=== PATIENT | female | born 1975 | race Caucasian/White ===

== ENCOUNTER 2023-03-09 15:55 | Emergency (ER) | payer OTHER, SELFPAY ==
--- NOTE | ~2023-03-09 | CT_ITS ---
EXAMINATION: CT abdomen pelvis wo con DATE: 03/09/2023 19:05 INDICATION: LUQ/L flank pain TECHNIQUE: Computed tomography (CT) of the abdomen and pelvis was performed without intravenous contr ast. Automated exposure control and iterative reconstruction technique were employed. The dose-length product was 710.48 mGy-cm. COMPARISON: None. FINDINGS: Lower thorax: Unremarkable Liver: Normal. Biliary/Gallbladder: Gallbladder is normal. No bile duct dilation. Pancreas: No mass or duct dilation. Spleen: Normal. Adrenals:No mass. Kidneys: No mass, stone, or hydronephrosis. GI tract: No small or large bowel dilation. Normal appendix. Mesentery/Peritoneum: No ascites, mass, or free air. Retroperitoneum: No mass. Pelvis: Pelvic organs are within normal limits. Soft Tissues: Soft tissues and body wall unremarkable. Bones: No acute osseous finding. IMPRESSION: No acute abdominopelvic process detected Reviewed, dictated and finalized at location K.
[2023-03-09 15:57] VITALS: BP 136/97; PULSE 79; RESP 22; TEMP 36.6; O2SAT 99
[2023-03-09] MEDS: hydrOXYzine HCL 25 MG TABLET 50 MG PO (17:42)
[2023-03-09 17:47] LABS: Basophils Absolute Auto 0.1 K/mm3 (0.0-0.1); Basophils Percent Auto 0.7 % (0.2-1.2); Eosinophils Absolute Auto 0.2 K/mm3 (0-0.3); Eosinophils Percent Auto 1.7 % (0-4.4); Hemoglobin 13.7 g/dL (12.0-15.0); Immature Granulocyte Absolute 0.04 K/mm3 (0.00-0.031); Immature Granulocyte Percent A 0.3 % (0-0.5); Lymphocytes Absolute Auto 2.63 K/mm3 (0.9-3.2); Lymphocytes Percent Auto 22.8 % (18.3-44.2); Mean Corpuscular HGB Conc 33.4 g/dl (32-36); Mean Corpuscular Hemoglobin 28.8 pg (26-34); Mean Corpuscular Volume 86.3 fl (80-100); Mean Platelet Volume 12.6 fl (7.4-10.4); Monocytes Absolute Auto 0.7 K/mm3 (0.1-0.6); Monocytes Percent Auto 5.7 % (2.6-8.5); Neutrophils Absolute Auto 7.9 K/mm3 (1.3-6.7); Neutrophils Percent Auto 68.8 % (45.5-73.1); Platelet Count Result 202 k/mm3 (150-375); Red Blood Count 4.75 M/mm3 (4.2-5.4); Red Cell Distribution Width 13.7 % (11.5-14.5); White Blood Count 11.5 K/mm3 (4.5-10.0)
--- NOTE | 2023-03-09 18:18 | ED.ANXIETY ---
HPI - Anxiety General Chief Complaint: Anxiety Stated Complaint: anxiety Time Seen by Provider: 03/09/23 16:29 Source: patient Mode of arrival: EMS Limitations: no limitations History of Present Illness HPI narrative: Patient is a 47-year-old female who presents to ED via EMS with report of left side pain and anxiety. Patient reports she was walking earlier this afternoon when she suddenly developed pain in her left upper abdomen. She states pain was sharp and sudden and lasted approximately 5 minutes before resolving. Pain was worse with movement, she was unable to find a comfortable position. She did not try anything for the pain. She began feeling very anxious about the pain. EMS was then called. Patient became even more anxious about coming to the hospital and having to focus on her, that she developed a panic attack. Patient does have long history of anxiety and takes Atarax 4 times a day. She did not take her first 2 doses this morning. Patient still feels anxious currently, but denies any further abdominal pain. Denies any chest pain, difficulty breathing, nausea, vomiting, diarrhea, constipation, urinary sx's. Related Data Home Medications Medication Instructions Recorded Confirmed famotidine 20 mg tablet (Pepcid) 20 mg PO DAILY 06/09/21 08/21/22 Allergies Allergy/AdvReac Type Severity Reaction Status Date / Time bupropion [From Wellbutrin] Allergy Mild Itching Verified 09/06/22 13:57 Review of Systems Review of Systems: CONSTITUTIONAL: Denies fever, chills, or sweats. CARDIOVASCULAR: Denies chest pain. RESPIRATORY: Denies dyspnea. GASTROINTESTINAL: See HPI. GENITOURINARY: Denies dysuria or hematuria. NEUROLOGIC: Denies headache, numbness, or weakness. PSYCHIATRIC: See HPI. All systems reviewed & are unremarkable except as noted in HPI and below [facility] Past Medical History Medical History BMI 29.0-29.9,adult BMI 39.0-39.9,adult BMI over 35 Family History Family History (System 09/06/22 @ 13:57 by Dell Sesay) Mother Hypertension Diabetes mellitus Lung cancer Brain cancer Father Throat cancer Alcoholism Grandparent Alcoholism Grandparent Cancer of unknown origin Sibling Hypertension Diabetes mellitus Social History Social History Smoking packs per day: 1 Smoking cigarettes per day: 20.0 Years smoked: 20 Smoking pack-years: 20.00 Smoking status: Current every day smoker Tobacco type: cigarettes Second hand tobacco smoke exposure: Yes Alcohol intake: former 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 HEAD: Normocephalic, atraumatic. NECK: Supple. No adenopathy, no masses. RESPIRATORY: Airway patent, respirations nonlabored. Clear to auscultation bilaterally, no rales, rhonchi, wheezing. CARDIOVASCULAR: Regular rate and rhythm without murmurs, rubs, or gallops. Radial pulses 2+ and equal bilaterally. ABDOMINAL: Soft, mild tenderness in left upper/mid abdomen, nondistended, no hepatosplenomegaly. Normoactive BS. MUSCULOSKELETAL: Moves all extremities. Strength/ROM intact without gross deformities. SKIN: Warm, dry, normal color. No rashes. NEURO: A&O X3. Speech clear. Cranial nerve
[2023-03-09 18:36] LABS: Alanine Aminotransferase 18 U/L (6-35); Albumin Level 4.4 g/dL (3.5-5.1); Alkaline Phosphatase 85 U/L (38-126); Anion Gap 6 mmol/L (8-16); Aspartate Amino Transferase 25 U/L (14-36); Bilirubin,Total 0.7 mg/dL (0.2-1.3); Blood Urea Nitrogen 12 mg/dL (7-17); Calcium 9.5 mg/dL (8.4-10.2); Carbon Dioxide 27 mmol/L (22-30); Chloride 107 mmol/L (98-107); Estimated CRCL calculation 102 ml/min; Estimated Glomerular Filt Rate > 60; Glucose 90 mg/dL (65-110); Sodium 140 mmol/L (137-145)
[2023-03-09 18:51] LABS: Appearance Urine Clear (Clear); Bilirubin Urine Negative (Negative); Blood Urine Negative (Negative); Color Urine Yellow (Yellow); Glucose Urine UA Negative (Negative); Ketones Urine Negative (Negative); Leukocyte Esterase Ur Negative LEU/UL (Negative); Nitrate Urine Negative (Negative); Protein Urine Negative (Negative); Specific Grav Ur 1.008 (1.001-1.035); pH Urine 7.5 (5.0-9.0)
[2023-03-09 19:10] LABS: Add Urine Microscopic? NO
[2023-03-09] MEDS: POTASSIUM CHLORIDE 20 MEQ PACKET (FOR LIQUID) 40 MEQ PO (20:18)
[2023-03-09 20:25] VITALS: BP 127/80; PULSE 63; RESP 16; O2SAT 97
== END 2023-03-09 20:43 | disposition home or self-care (01) ==
PROVIDERS: Emergency Provider Physician Assistant; PCP Family Medicine
DX: R10.12 Left upper quadrant pain (principal); E87.6 Hypokalemia; F41.9 Anxiety disorder, unspecified; F17.210 Nicotine dependence, cigarettes, uncomplicated
CPT/HCPCS: 36415; 74176; 80053; 81003; 81025; 85025; 99284; A9270

== ENCOUNTER 2024-05-26 10:54 | Outpatient (CLI) | payer OTHER, SELFPAY ==
--- NOTE | ~2024-05-26 | XR_ITS ---
3 VIEWS LUMBAR SPINE Ordering provider: Kiarra Flores NP History: . G62.9 - Polyneuropathy, unspecified . Comparison: None. FINDINGS: VERTEBRAL BODIES: No visible fracture or subluxation. Chronic loss of volume of T12 is noted. DISK SPACES: Narrowing of the disc L3-L4. Multilevel facet joint disease. SOFT TISSUES: Normal. IMPRESSION: No acute osseous abnormality lumbar spine. Reviewed, dictated and finalized at location A.
== END 2024-05-26 10:55 | disposition home or self-care (01) ==
DX: G62.9 Polyneuropathy, unspecified (principal); M54.32 Sciatica, left side
CPT/HCPCS: 72100

== ENCOUNTER 2024-07-18 01:40 | Day surgery (SDC) | payer OTHER, SELFPAY ==
[2024-07-07 15:30] VITALS: BMI 32.5
[2024-07-18] MEDS: LACTATED RINGERS 1,000 ML 150 ML IV CONT (10:34)
[2024-07-18 10:35] VITALS: BP 140/97; PULSE 84; RESP 16; TEMP 36.2; O2SAT 97
--- NOTE | 2024-07-18 10:35 | P.PNAN_ITS ---
Anes - Initial Pre Proc Eval Procedure: Operation Date: 07/18/24 11:30 Proposed Procedures p Screening Colonoscopy - Jake Napier MD Date/Time: 07/18/24 10:35 Surgeon: Jake Napier MD Pre Op Diagnosis: neoplasm screening Patient Data Age: 48 Gender: F Height: 1.75 m Weight: 100 kg Allergies Allergy/AdvReac Type Severity Reaction Status Date / Time bupropion [From Wellbutrin] Allergy Mild Itching Verified 07/18/24 10:23 Home Medications Medication Instructions Recorded Confirmed Type carbamazepine 400 mg 400 mg PO BID 01/15/24 07/18/24 History tablet,extended release,12 hr hydroxyzine HCl 25 mg tablet See Rx Instructions .Route 05/06/24 07/18/24 Rx .COMPLEX #120 tabs acetaminophen 500 mg capsule 1,000 mg PO BID 07/07/24 07/18/24 History cholecalciferol (vitamin D3) 125 125 mcg PO DAILY 07/07/24 07/18/24 History mcg (5,000 unit) tablet clonazepam 0.5 mg tablet (Klonopin) 1 mg PO BID PRN anxiety 07/07/24 07/18/24 History trazodone 50 mg tablet 100 mg PO HS PRN Insomnia 07/07/24 07/18/24 History vitamin B complex 2 tablet PO DAILY 07/07/24 07/18/24 History meloxicam 15 mg tablet 15 mg PO DAILY #30 tabs 07/08/24 07/18/24 Rx tizanidine 4 mg tablet 4 mg PO QHS PRN muscle spasticity 07/08/24 07/18/24 Rx #20 tabs omeprazole 40 mg capsule,delayed See Rx Instructions .Route 07/09/24 07/18/24 Rx release .COMPLEX #106 caps tramadol 50 mg tablet 50 mg PO BID PRN pain #30 tabs 07/13/24 07/18/24 Rx escitalopram oxalate 20 mg tablet 20 mg PO DAILY #90 tabs 07/15/24 07/18/24 Rx gabapentin 300 mg capsule See Rx Instructions .Route 07/15/24 07/18/24 Rx .COMPLEX #450 caps Patient hx anesthesia problems: none Family hx anesthesia problems: none Results Review: All pre-operative results and documents have been reviewed as part of the pre- operative evaluation. PMFSH Past Medical History Medical History (Updated 07/17/24 @ 15:36 by Pb Garcia DO) Agoraphobia Anemia BMI 29.0-29.9,adult Encounter for wellness examination Encounter to establish care Family history of gynecological problem History of hypertension History of iron deficiency Hyperlipidemia Positive colorectal cancer screening using Cologuard test PTSD (post-traumatic stress disorder) Screening cholesterol level Screening for diabetes mellitus Screening for thyroid disorder TIA (transient ischemic attack) Well woman exam with routine gynecological exam Family History Family History Mother Hypertension Diabetes mellitus Lung cancer Brain cancer Father Throat cancer Alcoholism Grandparent Alcoholism Cancer of unknown origin Sibling Hypertension Diabetes mellitus Social History Social History Smoking packs per day: 1 Smoking cigarettes per day: 20.0 Years smoked: 20 Smoking pack-years: 20.00 Smoking status: Current every day smoker Tobacco type: cigarettes Second hand tobacco smoke exposure: Yes Alcohol intake: former 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 Substance use: current Substance use type: marijuana Do You Feel Safe in your Home?: Yes Lack of Transportation: No Lack of Food: Never True Current Housing: I Have Housing Concerned About Future Housing: No Difficulty Paying Gas/Electric Bills: No Difficulty Paying for Meds: No Currently Unemployed: No Education: Trade/Vocational Certificate Difficulty w/ Childcare or Family Care: No Living arrangements: other 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/Education: occupation 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 Informed Consent: The patient's anesthetic plan and its attendant risks and benefits were discussed with the patient/family/POA. Questions were solicited and answers provided to the satisfaction of the patient/family/POA.
--- NOTE | 2024-07-18 11:15 | PM.HPGS ---
History of Present Illness History of Present Illness Consent: Risks, benefits, and alternatives have been discussed and questions answered. Patient agrees to proceed with procedure. Chief complaint: neoplasm screening Narrative: Latasha Roth is a 48 year old female here for first screening colonoscopy, + cologuard Review of Systems Review of Systems: All systems reviewed & are unremarkable except as noted in HPI and below PMFSH Past Medical History Medical History (Updated 07/17/24 @ 15:36 by Pb Garcia, DO) Agoraphobia Anemia BMI 29.0-29.9,adult Encounter for wellness examination Encounter to establish care Family history of gynecological problem History of hypertension History of iron deficiency Hyperlipidemia Positive colorectal cancer screening using Cologuard test PTSD (post-traumatic stress disorder) Screening cholesterol level Screening for diabetes mellitus Screening for thyroid disorder TIA (transient ischemic attack) Well woman exam with routine gynecological exam Family History Family History Mother Hypertension Diabetes mellitus Lung cancer Brain cancer Father Throat cancer Alcoholism Grandparent Alcoholism Cancer of unknown origin Sibling Hypertension Diabetes mellitus Social History Social History Smoking packs per day: 1 Smoking cigarettes per day: 20.0 Years smoked: 20 Smoking pack-years: 20.00 Smoking status: Current every day smoker Tobacco type: cigarettes Second hand tobacco smoke exposure: Yes Alcohol intake: former 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 Substance use: current Substance use type: marijuana Do You Feel Safe in your Home?: Yes Lack of Transportation: No Lack of Food: Never True Current Housing: I Have Housing Concerned About Future Housing: No Difficulty Paying Gas/Electric Bills: No Difficulty Paying for Meds: No Currently Unemployed: No Education: Trade/Vocational Certificate Difficulty w/ Childcare or Family Care: No Living arrangements: other Occupation/Education: occupation 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 Gender identity (if verbalized by the patient): Female Spiritual care concerns: No Meds Home Medications and Allergies Home Medications Medication Instructions Recorded Confirmed Type carbamazepine 400 mg 400 mg PO BID 01/15/24 07/18/24 History tablet,extended release,12 hr hydroxyzine HCl 25 mg tablet See Rx Instructions .Route 05/06/24 07/18/24 Rx .COMPLEX #120 tabs acetaminophen 500 mg capsule 1,000 mg PO BID 07/07/24 07/18/24 History cholecalciferol (vitamin D3) 125 125 mcg PO DAILY 07/07/24 07/18/24 History mcg (5,000 unit) tablet clonazepam 0.5 mg tablet (Klonopin) 1 mg PO BID PRN anxiety 07/07/24 07/18/24 History trazodone 50 mg tablet 100 mg PO HS PRN Insomnia 07/07/24 07/18/24 History vitamin B complex 2 tablet PO DAILY 07/07/24 07/18/24 History meloxicam 15 mg tablet 15 mg PO DAILY #30 tabs 07/08/24 07/18/24 Rx tizanidine 4 mg tablet 4 mg PO QHS PRN muscle spasticity 07/08/24 07/18/24 Rx #20 tabs omeprazole 40 mg capsule,delayed See Rx Instructions .Route 07/09/24 07/18/24 Rx release .COMPLEX #106 caps tramadol 50 mg tablet 50 mg PO BID PRN pain #30 tabs 07/13/24 07/18/24 Rx escitalopram oxalate 20 mg tablet 20 mg PO DAILY #90 tabs 07/15/24 07/18/24 Rx gabapentin 300 mg capsule See Rx Instructions .Route 07/15/24 07/18/24 Rx .COMPLEX #450 caps Allergies Allergy/AdvReac Type Severity Reaction Status Date / Time bupropion [From Wellbutrin] Allergy Mild Itching Verified 07/18/24 10:23 Vital Signs Vital Signs - 24 hr 07/18/24 10:35 Temperature 97.1 F L Pulse Rate 84 Respiratory Rate 16 Blood Pressure 140/97 H Pulse Oximetry 97 Oxygen Delivery Room Air Exam Const: General: comfortable and no acute distress HENMT: Face/Nose/Sinus: Normal nares present Eyes: General: appearance normal, both eyes and all related structures Neck: Neck: no JVD Resp: Auscultation: clear to auscultation bilaterally Cardio: Rate: regular rate Rhythm: regular rhythm GI: Inspection: non-distended GI Palp: Yes Soft to palpation Skin: General skin exam: normal color Neuro: General: gait normal Speech: normal speech Extrem: General: normal to inspection Psych: Mental Status: mental status grossly normal Assessment and Plan Assessment and plan (1) Positive colorectal cancer screening using Cologuard test: Code(s): R19.5 - Other fecal abnormalities Status: Acute Assessment and Plan: colonoscopy
[2024-07-18 11:33] VITALS: BP 123/85; PULSE 70; RESP 18; O2SAT 99
[2024-07-18 11:43] VITALS: BP 140/92; PULSE 66; RESP 12; O2SAT 99
[2024-07-18 11:53] VITALS: BP 131/96; PULSE 65; RESP 20; O2SAT 99
== END 2024-07-18 12:10 | disposition home or self-care (01) ==
PROVIDERS: PCP Family Medicine; Referring Provider Nurse Practitioner Adult Health; Visit Provider Internal Medicine Gastroenterology
PROC: 0DJD8ZZ Inspection of Lower Intestinal Tract, Via Natural or Artificial Opening Endoscopic (ICD-10-PCS; CPT 45378; principal; 2024-07-18 11:30)
DX: R19.5 Other fecal abnormalities (principal); K63.5 Polyp of colon; I10 Essential (primary) hypertension; E78.5 Hyperlipidemia, unspecified; F43.10 Post-traumatic stress disorder, unspecified; F17.210 Nicotine dependence, cigarettes, uncomplicated; F12.90 Cannabis use, unspecified, uncomplicated; Z86.73 Personal history of transient ischemic attack (TIA), and cerebral infarction without residual deficits; E66.9 Obesity, unspecified; Z68.33 Body mass index [BMI] 33.0-33.9, adult
CPT/HCPCS: 45385; 88305; J2704; J7120

== ENCOUNTER 2024-08-21 10:48 | Outpatient (CLI) | payer OTHER, SELFPAY ==
--- NOTE | ~2024-08-21 | MR_ITS ---
MRI of the lumbar spine Clinical History: Left sciatica Technique: Axial T2-weighted images, and sagittal T1-weighted, T2-weighted, and and T2 fat-sat images were acquired. Findings: No fracture and 5. There is minimal grade 1 retrolisthesis of L5 over S1. No bone marrow si gnal abnormality evident. At L1-L2 and L2-L3, there is no disc bulge or herniation. There is moderate to advanced facet arthrop athy levels. No spinal canal stenosis at these levels. There is mild left neural foraminal narrowing at L2-L3. Remaining neural foramina at these levels are preserved. At L3-L4, there is advanced degenerative disc narrowing. This bulge and advanced facet arthropathy re sult in severe spinal canal stenosis/thecal sac compression. There is severe right neural foraminal n arrowing and mild left neural foraminal narrowing. At L4-L5, there is diffuse disc bulge and severe facet arthropathy, resulting in moderate to severe s vanessa canal stenosis/thecal sac compression. There is mild bilateral neural foraminal narrowing. At L5-S1, there is left paracentral disc protrusion versus focal extrusion, which results in mild com pression of the thecal sac and probable impingement of the descending left S1-S2 level nerve root. Th ere is moderate to advanced right neural foraminal narrowing, and severe left neural foraminal narrow ing. Paravertebral soft tissues are unremarkable. Impression: Focal left paracentral disc extrusion at L5-S1, which probably impinges the descending left S1-S2 lev el nerve root. Additional advanced degenerative spondylitic changes at L5-S1, as detailed above. Severe degenerative spondylosis at L3-L4 and L4-L5, as above. Reviewed, dictated and finalized at [facility] M. CAL CONSULTANT Impression: Focal left paracentral disc extrusion at L5-S1, which probably impinges the carlos cending left S1-S2 level nerve root. Additional advanced degenerative spondylitic changes at L5-S1, as detailed abov e. Severe degenerative spondylosis at L3-L4 and L4-L5, as above.
== END 2024-08-21 10:49 | disposition home or self-care (01) ==
PROVIDERS: PCP Family Medicine
DX: M51.27 Other intervertebral disc displacement, lumbosacral region (principal); M47.817 Spondylosis without myelopathy or radiculopathy, lumbosacral region; M47.816 Spondylosis without myelopathy or radiculopathy, lumbar region; M54.32 Sciatica, left side
CPT/HCPCS: 72148

== ENCOUNTER 2025-02-22 12:14 | Emergency (ER) | payer MEDICAID, SELFPAY ==
--- OUTSIDE RECORDS SUMMARY | 2025-02-22 12:20 | XMS_ITS | Clinical Summary ---
Author Organization [facility] Address [address] [place] [address] Phone Care Team Providers Care Equipment Monitor Phototypesetting Name Role Phone Provider, None Primary Care Provider Unavailabl e Allergies No known active allergies Medications lisinopril (PRINIVIL, ZESTRIL) 5 MG Tablet Take 1 Tab by mouth daily. 30 Tab 0 11/19/2015 Active Social History Tobacco Use Types Packs/Day Years Used Date Smoking Tobacco: Every Day Cigarettes 0.5 24 Comments No Sex and Gender Information Value Date Recorded Sex Assigned at Not on file Legal Sex Female 11:05 PM CDT Gender Identity Not on file Sexual Orientation Not on file Last Filed Vital Signs Vital Sign Reading Time Taken Comments Blood Pressure 122/74 11/19/2015 7:30 PM HOME PLANNING CONSULTANT SALESPERSON Pulse 85 11/19/2015 7:30 PM HOME PLANNING CONSULTANT SALESPERSON Temperature 37.1 C (98.7 F) 11/19/2015 5:13 PM HOME PLANNING CONSULTANT SALESPERSON Respiratory Rate 18 11/19/2015 5:13 PM HOME PLANNING CONSULTANT SALESPERSON Oxygen Saturation 97% 11/19/2015 7:30 PM HOME PLANNING CONSULTANT SALESPERSON Inhaled Oxygen Concentration - - Weight 117.9 kg (260 lb) 11/19/2015 5:13 PM HOME PLANNING CONSULTANT SALESPERSON Height 177.8 cm (5' 10) 11/19/2015 5:13 PM HOME PLANNING CONSULTANT SALESPERSON Body Mass Index 37.31 11/19/2015 5:13 PM HOME PLANNING CONSULTANT SALESPERSON Plan of Treatment Not on file Care Teams Equipment Monitor Phototypesetting Relationship Specialty Start Date End Date Provider, None [place] PCP - General 11/19/15
--- OUTSIDE RECORDS SUMMARY | 2025-02-22 12:20 | XMS_ITS | Patient Health Record ---
Author Organization [facility] Address [address] [place] [address] Care Team Providers Care Bacteriologist Pharmaceutical Name Role Phone Crispin Oreilly Primary Care Provider Allergies Allergen (clinical drug ingredient) Drug/Non Drug Allergy documented on EMR Reaction Allergy Type Onset Date Status Wellbutrin Unknown Drug Allergy Active Reason For Referral No Information Medications Medication SIG (Take, Route, Frequency, Duration) Notes Start Date End Date Status Folic Acid Active Lisinopril 20 MG 1 tablet Orally Once a day for 30 day(s) Active clonazePAM 0.5 MG 1 tablet Orally 3 ti mes per day as needed for anxiety for 14 days 02/07/2024 Active Vivitrol 380 MG 4 ML Intramuscular e very 28 days Active Propranolol HCl 20 MG 1 tablet Orally Tw ice a day for 30 days 02/06/2024 Active Pepcid 20 MG 1 tablet at bedtime as needed Orally twice a day for 30 day(s) Active Gabapentin 300 MG 1 capsule Orally thr ee times a day for 30 day(s) Active metroNIDAZOLE 0.75 % 1 application to ra sh on face Externally Twice a day 06/08/2021 Active Escitalopram Oxalate 10 MG 1 tablet Oral ly Once a day for 30 day(s) Active Vistaril 25 MG 1 capsule as needed Orally every 8 hrs for 30 day(s) Active Multivitamin Active Vitamin B-1 Active Social History Tobacco Use: Social History Observation Description Date Details (start date - stop date) Current Smoker NA - NA Sex Assigned At : Social History Observation Description Sex Assigned At Female Dont use, Tobacco Use/Smoking Question Answer Notes Are you a current smoker How often do you smoke cigarettes? every day How many cigarettes a day do you smoke? 21-30 How soon after you wake up d o you smoke your first cigarette? within 5 minutes Are you interested in quitting? Thinking about q uitting Additional Findings: Tobacco User Heavy cigarett e smoker (20-39 cigs/day) Problems Problem Type SNOMED Code ICD Code Onset Dates Problem Status W/U Status Risk Notes Problem Tobacco use (327688713) Tobacco use disorder (F17.200) Active confirmed Problem Obesity (156767248) Obesity, unspecified classification, unspecified obesity type, unspecified whether serious comorbidity present (E66.9) Active confirmed Problem 434416134 Acne rosacea (L71.9) Active confirmed Problem 004460253 Alcohol related disorder (F10.99) Active confirmed Problem 92352132 Primary hypertension (I10) Active confirmed Encounters Encounter Location Date Provider Diagnosis [facility] [address] [place] [address] 07/28/2024 Crispin Oreilly Plan Of Treatment No Information Insurance Providers Payer Name Payer Address Payer Phone Subscriber Number Group Number Insured Name Patient Relationship to Insured Coverage Start Date Coverage End Date [facility] [address] [place] [address] [id number] Latasha Roth Self - patient is the insured Medications Administered Medication Instructions Date of Administration Dosage Notes Vivitrol 06/08/2021 380 mg Pt tolerated i njection well. Pt voiced no questions or concerns. Sample provided. Vivitrol 07/07/2021 380 mg Pt tolerated i njection well. Pt voiced no questions or concerns. Vivitrol 08/11/2021 380 mg Pt tolerated i njection well. Pt voiced no questions or concerns. Medical (General) History Medical History History ICD Code Alcohol use Z72.89 Primary hypertension I10 Surgical History Surgery Date(Month/Year) C6 fusion Right wrist repair Tonsils and adenoids removed Left shoulder cyst removed Hospitalization History Reason Date(Month/Year) inpatient detoxification (specify substa nce and outcome)
[2025-02-22 12:32] VITALS: BP 130/77; PULSE 80; RESP 16; TEMP 36.9; O2SAT 97
--- NOTE | 2025-02-22 12:39 | ED.EAR ---
HPI - Ear Problem General Chief complaint: Ear Stated complaint: double ear inf Time Seen by Provider: 02/22/25 12:40 Source: patient Mode of arrival: ambulatory Limitations: no limitations History of Present Illness HPI Narrative: 49 y/o female presented for c/o bilateral ear pain. Onset one week. Pt was seen by pcp 02/16 and prescribed Clotrimazole betamethasone cream. Says this is not helping. She woke today with more pain and decreased hearing. Says the right ear is worse than the left; and has been off balance. Denies tinnitues, n/v/d/f/c. Complaint: ear pain Related Data Home Medications ?Medication ?Instructions ?Recorded ?Confirmed ?Last Taken ?Type carbamazepine 400 mg 400 mg PO BID 01/15/24 02/16/25 07/18/24 History tablet,extended release,12 hr acetaminophen 500 mg capsule 1,000 mg PO BID 07/07/24 02/16/25 07/17/24 History cholecalciferol (vitamin D3) 125 125 mcg PO DAILY 07/07/24 02/16/25 07/17/24 History mcg (5,000 unit) tablet vitamin B complex 2 tablet PO DAILY 07/07/24 02/16/25 07/17/24 History buprenorphine HCl 2 mg sublingual mg sublingual 11/13/24 02/16/25 Unknown History tablet clonazepam 1 mg tablet mg PO TID PRN 02/16/25 02/16/25 Unknown History Suboxone 02/22/25 Unknown History Allergies Allergy/AdvReac Type Severity Reaction Status Date / Time bupropion (From Wellbutrin) Allergy Mild Itching Verified 02/16/25 15:47 Review of Systems Review of Systems: CONSTITUTIONAL: Denies malaise, chills, or fever. EYES: Denies visual changes, redness, or discharge. ENT: Denies rhinorrhea, congestion, sinus pain, and sore throat. Reports ear pain CARDIOVASCULAR: Denies chest pain, palpitations, or edema. RESPIRATORY: Denies cough or dyspnea. GASTROINTESTINAL: Denies abdominal pain, nausea, vomiting, diarrhea SKIN: Denies rash or itching. MUSCULOSKELETAL: Denies myalgia. NEUROLOGIC: Denies headache. All systems reviewed & are unremarkable except as noted in HPI and below PMFSH Past Medical History Medical History ETOH abuse Agoraphobia PTSD (post-traumatic stress disorder) Anemia Hyperlipidemia TIA (transient ischemic attack) Positive colorectal cancer screening using Cologuard test BMI 29.0-29.9,adult Family history of gynecological problem Well woman exam with routine gynecological exam Encounter for wellness examination Encounter to establish care Screening for thyroid disorder Screening cholesterol level History of iron deficiency Screening for diabetes mellitus History of hypertension Surgical History Surgical History Hx of tonsillectomy History of orthopedic surgery r arm 2006 neck surgery 2000 Family History Family History Mother Hypertension Diabetes mellitus Lung cancer Brain cancer Father Throat cancer Alcoholism Grandparent Alcoholism Cancer of unknown origin Sibling Hypertension Diabetes mellitus Social History Social History Smoking packs per day: 1 Smoking cigarettes per day: 20.0 Years smoked: 20 Smoking pack-years: 20.00 Smoking status: Current every day smoker Tobacco type: cigarettes Second hand tobacco smoke exposure: Yes Alcohol intake: former 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 Substance use: current Substance use type: marijuana Do You Feel Safe in your Home?: Yes Lack of Transportation: No Lack of Food: Sometimes True Current Housing: I Have Housing Concerned About Future Housing: No Difficulty Paying Gas/Electric Bills: No Difficulty Paying for Meds: No Currently Unemployed: No Education: Trade/Vocational Certificate Difficulty w/ Childcare or Family Care: No Living arrangements: other Additional living arrangements comments: significant other Occupation/Education: occupation 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 There is no relevant family history pertinent to the presenting complaint Exam Narrative: GENERAL: Well-appearing, well-nourished, and in no acute distress. HEAD: Normocephalic EYES: conjunctivae clear ENT: Nares clear. Mucous membranes moist. Right TM erythematous, bulging and intact; Bilateral canals erythematous, tender, bilateral tragal tenderness. Oropharynx not erythematous without lesions. no drooling, no hoarseness, no trismus, uvula midline. NECK: Supple. No lymphadenopathy CHEST: Clear to auscultation, breath sounds equal. No wheezing, rhonchi, rales, or stridor. No respiratory distress, speaks in full sentences. HEART: Regular rate and rhythm. No murmur heard. SKIN: Warm, dry, no rash. NEURO: Alert and oriented x3. PSYCH: Normal mood and affect Course Course Emergency Course: Patient is aware of diagnosis, understands and agrees to treatment plan. Anticipatory guidance given. Patient agrees to follow-up as directed and is aware of reasons to seek care at the emergency department. Portions of this record may have been created with voice recognition software Level of Care: Express Care Visit Vital Signs Vital signs: Vital Signs Temperature 98.4 F 02/22/25 12:32 Pulse Rate 80 02/22/25 12:32 Respiratory Rate 16 02/22/25 12:32 Blood Pressure 130/77 02/22/25 12:32 Pulse Oximetry 97 02/22/25 12:32 Oxygen Delivery Room Air 02/22/25 12:32 Temperature 98.4 F 02/22/25 12:32 Pulse Rate 80 02/22/25 12:32 Respiratory Rate 16 02/22/25 12:32 Blood Pressure 130/77 02/22/25 12:32 Pulse Oximetry 97 02/22/25 12:32 Oxygen Delivery Room Air 02/22/25 12:32 Reviewed Medical Decision Making MDM Narrative Medical decision making narrative: Discussed physical exam findings consistent with bilateral otitis externa and right AOM. Reviewed prescriptions. Advised supportive measures and signs/symptoms to go to the ER. Patient is appropriate for outpatient treatment and follow-up. Differential Diagnosis Differential Diagnosis: Coronavirus, strep pharyngitis, allergic rhinitis, upper respiratory tract infection, sinusitis, rhinosinusitis, nasopharyngitis, viral pharyngitis, otitis media, otitis externa, eustachian tube dysfunction, foreign body, cerumen impaction. Vital Signs Vital Signs: Vital Signs Temperature 98.4 F 02/22/25 12:32 Pulse Rate 80 02/22/25 12:32 Respiratory Rate 16 02/22/25 12:32 Blood Pressure 130/77 02/22/25 12:32 Pulse Oximetry 97 02/22/25 12:32 Oxygen Delivery Room Air 02/22/25 12:32 Temperature 98.4 F 02/22/25 12:32 Pulse Rate 80 02/22/25 12:32 Respiratory Rate 16 02/22/25 12:32 Blood Pressure 130/77 02/22/25 12:32 Pulse Oximetry 97 02/22/25 12:32 Oxygen Delivery Room Air 02/22/25 12:32 Discharge Plan Discharge Clinical Impression: Otitis media Qualifiers: Otitis media type: suppurative Chronicity: acute Laterality: right Recurrence: non-recurrent Spontaneous tympanic membrane rupture: without spontaneous rupture Qualified Code(s): H66.001 - Acute suppurative otitis media without spontaneous rupture of ear drum, right ear Otitis externa Qualifiers: Otitis externa type: unspecified type Chronicity: acute Laterality: bilateral Qualified Code(s): H60.503 - Unspecified acute noninfective otitis externa, bilateral Patient Disposition: Home Condition: Stable Instructions: Antibiotic Form, Swimmer's Ear (ED), Ear Infection (ED) Additional Instructions: Swimmer's ear is an infection in the outer ear canal, which runs from your eardrum to the outside of your head. It's often caused by water that remains in your ear, creating a moist environment that encourages the growth of bacteria. Take antibiotic drops as directed. Tylenol and ibuprofen every 8 hours as needed to reduce fever, pain Avoid water or anything into the ear for one week Stop the previously prescribed cream. Follow up with your personal physician for further evaluation and treatment within 3-5days. If your symptoms persist, change or worsen significantly, go to the emergency department for further evaluation. Patient Language: Citizen Of [place] Prescriptions: New amoxicillin-pot clavulanate 875-125 mg tablet 1 tablet PO Q12H 7 Days Qty: 14 0RF ciprofloxacin-dexamethasone 0.3-0.1 % drops,suspension 4 drp EACH EAR Q12H 7 Days Qty: 7.5 0RF No Action Suboxone carbamazepine 400 mg tablet extended release 12 hr 400 mg PO BID progesterone micronized [Prometrium] 200 mg capsule 200 mg PO QHS 90 Days Qty: 90 3RF clonazepam 1 mg tablet PO TID PRN clotrimazole-betamethasone 1-0.05 % lotion 1 applic topical BID 14 Days Qty: 30 0RF buprenorphine HCl 2 mg tablet, sublingual sublingual vitamin B complex [B Complex-Vitamin B12] Tablet 2 tablet PO DAILY acetaminophen 500 mg Capsule 1,000 mg PO BID cholecalciferol (vitamin D3) 125 mcg (5,000 unit) Tablet 125 mcg PO DAILY gabapentin 300 mg capsule See Rx Instructions .ROUTE .COMPLEX Qty: 450 1RF Dose Instruction: TAKE 1 CAPSULE BY MOUTH IN THE MORNING, 1 IN THE AFTERNOON, 2 AT BEDTIME Rx Instructions: TAKE 1 CAPSULE BY MOUTH IN THE MORNING, 2 IN THE AFTERNOON, 2 AT BEDTIME escitalopram oxalate 20 mg tablet 20 mg PO DAILY Qty: 90 1RF omeprazole 40 mg capsule,delayed release(DR/EC) See Rx Instructions .ROUTE .COMPLEX Qty: 106 0RF Dose Instruction: TAKE 1 CAPSULE BY MOUTH TWICE DAILY FOR 2 WEEKS THEN DECREASE TO ONCE DAILY Rx Instructions: TAKE 1 CAPSULE BY MOUTH TWICE DAILY FOR 2 WEEKS THEN DECREASE TO ONCE DAILY meloxicam 15 mg tablet 15 mg PO DAILY Qty: 30 3RF Follow-up/Referrals: Elliot Ingram MD [Primary Care Provider] -
== END 2025-02-22 12:52 | disposition home or self-care (01) ==
PROVIDERS: Emergency Provider Nurse Practitioner Family; PCP Family Medicine
DX: H66.001 Acute suppurative otitis media without spontaneous rupture of ear drum, right ear (principal); H60.503 Unspecified acute noninfective otitis externa, bilateral; F17.210 Nicotine dependence, cigarettes, uncomplicated; I10 Essential (primary) hypertension; E78.5 Hyperlipidemia, unspecified; Z86.73 Personal history of transient ischemic attack (TIA), and cerebral infarction without residual deficits
CPT/HCPCS: 99213; G0463

== ENCOUNTER 2025-03-29 17:44 | Emergency (ER) | payer OTHER, SELFPAY ==
--- OUTSIDE RECORDS SUMMARY | 2025-03-29 17:46 | XMS_ITS | Clinical Summary ---
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 Name Role Phone Provider, None Primary Care [...] Comments Blood Pressure 122/74 11/19/2015 7:30 PM [employer] Pulse 85 11/19/2015 7:30 PM [employer] Temperature 37.1 C (98.7 F) 11/19/2015 5:13 PM [employer] Respiratory Rate 18 11/19/2015 5:13 PM [employer] Oxygen Saturation 97% 11/19/2015 7:30 PM [employer] Inhaled Oxygen Concentration - - Weight 117.9 kg (260 lb) 11/19/2015 5:13 PM [employer] Height 177.8 cm (5' 10) 11/19/2015 5:13 PM [employer] Body Mass Index 37.31 11/19/2015 5:13 PM [employer] Plan of Treatment Not on file Care Teams 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
--- OUTSIDE RECORDS SUMMARY | 2025-03-29 17:46 | XMS_ITS | Patient Health Record ---
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 Name Role Phone Crispin Oreilly Primary Care Provider Allergies Allergen (clinical drug ingredient) Drug/Non Drug Allergy documented on EMR Reaction Allergy Type Onset Date Status Wellbutrin Unknown Drug Allergy Active Reason For Referral No Information Medications Medication SIG (Take, Route, Frequency, Duration) Notes Start Date End Date Status Folic Acid Active Lisinopril 20 MG 1 tablet Orally Once a day; Duration: 30 day(s) Active clonazePAM 0.5 MG 1 tablet Orally 3 ti mes per day as needed for anxiety; Duration: 14 days 02/07/2024 Activ e Vivitrol 380 MG 4 ML Intramuscular e very 28 days Active Propranolol HCl 20 MG 1 tablet Orally Tw ice a day; Duration: 30 days 02/06/2024 Active Pepcid 20 MG 1 tablet at bedtime as needed Orally twice a day; Duration: 30 day(s) Active Gabapentin 300 MG 1 capsule Orally thr ee times a day; Duration: 30 day(s) Active metroNIDAZOLE 0.75 % 1 application to ra sh on face Externally Twice a day 06/08/2021 Active Escitalopram Oxalate 10 MG 1 tablet Oral ly Once a day; Duration: 30 day(s) Active Vistaril 25 MG 1 capsule as needed Orally every 8 hrs; Duration: 30 day(s) Active Multivitamin Active Vitamin B-1 [...] W/U Status Risk Notes Problem Tobacco use (777069340) Tobacco use disorder (F17.200) Active confirmed Problem Obesity (303613248) Obesity, unspecified classification, unspecified obesity type, unspecified whether serious comorbidity present (E66.9) Active confirmed Problem Acne rosacea (558298126) Acne rosacea (L71.9) Active confirmed Problem Alcohol related disorder (F10.99) Active confirmed Problem Primary hypertension (09190786) Primary hypertension (I10) Active confirmed Encounters Encounter Location Date Provider Diagnosis [facility] [address] [place] [address] 07/28/2024 Crispin Oreilly Plan Of Treatment No Information Insurance Providers Payer Name Payer Address Payer Phone Subscriber Number Group Number Insured Name Patient Relationship to Insured Coverage Start Date Coverage End Date [facility] [address] [place] [address] [id number] Latasha Roth Self - patient is the [...]
[2025-03-29 17:51] VITALS: BP 137/94; PULSE 87; RESP 16; TEMP 36.5; O2SAT 99
--- NOTE | 2025-03-29 17:51 | ED_ITS ---
HPI - Ear Problem General Chief complaint: Ear Stated complaint: Ear Pain Time Seen by Provider: 03/29/25 17:51 Source: patient Mode of arrival: ambulatory Limitations: no limitations History of Present Illness HPI Narrative: 49-year-old female presented for complaint of bilateral ear pain. Intermittently for 1 week. endorses ear drainage, and muffled hearing worse on the right. Pain is described as a dull ache. Endorses chronic tinnitus. Pt also reports nasal congestion and drainage for over one week. denies sob, wheezing, n/v/d/f/c. Pt was treated for ear infection one month ago. MD Complaint: ear pain Related Data Home Medications ?Medication ?Instructions ?Recorded ?Confirmed ?Last Taken ?Type carbamazepine 400 mg 400 mg PO BID 01/15/24 02/16/25 07/18/24 History tablet,extended release,12 hr cholecalciferol (vitamin D3) 125 125 mcg PO DAILY 07/07/24 02/16/25 07/17/24 History mcg (5,000 unit) tablet vitamin B complex 2 tablet PO DAILY 07/07/24 02/16/25 07/17/24 History clonazepam 1 mg tablet mg PO TID PRN 02/16/25 02/16/25 Unknown History buprenorphine HCl 8 mg sublingual mg sublingual 03/29/25 Unknown History tablet bupropion HCl 75 mg tablet mg PO 03/29/25 Unknown History cholecalciferol (vitamin D3) 1,250 03/29/25 Unknown History mcg (50,000 unit) capsule clonazepam 0.5 mg tablet mg 03/29/25 Unknown History estradiol 0.05 mg/24 hr weekly 03/29/25 Unknown History transdermal patch naloxone 4 mg/actuation nasal intranasal 03/29/25 Unknown History spray (Narcan) Review of Systems Review of Systems: CONSTITUTIONAL: Denies malaise, chills, or fever. EYES: Denies visual changes, redness, or discharge. ENT: Reports ear pain rhinorrhea, congestion, sinus pain CARDIOVASCULAR: Denies chest pain, palpitations, or edema. RESPIRATORY: Denies cough or dyspnea. GASTROINTESTINAL: Denies abdominal pain, nausea, vomiting, diarrhea SKIN: Denies rash or itching. MUSCULOSKELETAL: Denies myalgia. NEUROLOGIC: Denies headache. All systems reviewed & are unremarkable except as noted in HPI and below PMFSH Past Medical History Medical History ETOH abuse Agoraphobia PTSD (post-traumatic stress disorder) Anemia Hyperlipidemia TIA (transient ischemic attack) Positive colorectal cancer screening using Cologuard test BMI 29.0-29.9,adult Family history of gynecological problem Well woman exam with routine gynecological exam Encounter for wellness examination Encounter to establish care Screening for thyroid disorder Screening cholesterol level History of iron deficiency Screening for diabetes mellitus History of hypertension Surgical History Surgical History Hx of tonsillectomy History of orthopedic surgery r arm 2006 neck surgery 2001 Family History Family History Mother Hypertension Diabetes mellitus Lung cancer Brain cancer Father Throat cancer Alcoholism Grandparent Alcoholism Cancer of unknown origin Sibling Hypertension Diabetes mellitus Social History Social History Smoking packs per day: 1 Smoking cigarettes per day: 20.0 Years smoked: 20 Smoking pack-years: 20.00 Smoking status: Current every day smoker Tobacco type: cigarettes Second hand tobacco smoke exposure: Yes Alcohol intake: former 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 Substance use: current Substance use type: marijuana Do You Feel Safe in your Home?: Yes Lack of Transportation: No Lack of Food: Sometimes True Current Housing: I Have Housing Concerned About Future Housing: No Difficulty Paying Gas/Electric Bills: No Difficulty Paying for Meds: No Currently Unemployed: No Education: Trade/Vocational Certificate Difficulty w/ Childcare or Family Care: No Living arrangements: other Additional living arrangements comments: significant other Occupation/Education: occupation 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 There is no relevant family history pertinent to the presenting complaint Exam Narrative: GENERAL: Well-appearing HEAD: Normocephalic EYES: PERRLA, conjunctivae clear ENT: Nares clear. Mucous membranes moist. Right TM erythematous, bulging and intact; bilateral canals extending to outer ear erythematous,bilateral tragal tenderness. no drainage. Left TM pearly peterson normal light reflex. Oropharynx not erythematous without lesions. no drooling, no hoarseness, no trismus, uvula midline. NECK: Supple. No lymphadenopathy CHEST: Clear to auscultation, breath sounds equal. HEART: Regular rate and rhythm. SKIN: Warm, dry, no rash. NEURO: Alert and oriented x3. PSYCH: Normal mood and affect Course Course Emergency Course: Patient is aware of diagnosis, understands and agrees to treatment plan. Anticipatory guidance given. Patient agrees to follow-up as directed and is aware of reasons to seek care at the emergency department. Portions of this record may have been created with voice recognition software Level of Care: Express Care Visit Vital Signs Vital signs: Reviewed Medical Decision Making MDM Narrative Medical decision making narrative: discussed physical exam findings. Reviewed abx for OE and right AOM, and sinusitis. Advised supportive measures and signs/symptoms to go to the ER. Patient is appropriate for outpatient treatment and follow-up. Differential Diagnosis Differential Diagnosis: Coronavirus, strep pharyngitis, allergic rhinitis, upper respiratory tract infection, sinusitis, rhinosinusitis, nasopharyngitis, viral pharyngitis, otitis media, otitis externa, eustachian tube dysfunction, foreign body, cerumen impaction. Discharge Plan Discharge Clinical Impression: Otitis externa Sinusitis Qualifiers: Sinusitis location: unspecified location Chronicity: acute Recurrence: non- recurrent Qualified Code(s): J01.90 - Acute sinusitis, unspecified Patient Disposition: Home Condition: Stable Instructions: Antibiotic Form, Sinusitis (ED), Swimmer's Ear (ED) Additional Instructions: Swimmer's ear is an infection in the outer ear canal, which runs from your eardrum to the outside of your head. It's often caused by water that remains in your ear, creating a moist environment that encourages the growth of bacteria. Take antibiotic drops as directed. Avoid water or anything into the ear for one week Recommend Flonase spray and Zyrtec (or Claritin/Lois) Tylenol 1000mg every 8 hours as needed for pain Follow up with your primary care provider in 1 week. Go to the ER for worsening symptoms or concerns. Patient Language: Polish Prescriptions: New amoxicillin-pot clavulanate 875-125 mg tablet 1 tablet PO Q12H 7 Days Qty: 14 0RF ciprofloxacin-dexamethasone 0.3-0.1 % drops,suspension 4 drp EACH EAR Q12H 7 Days Qty: 7.5 0RF No Action clonazepam 0.5 mg tablet estradiol 0.05 mg/24 hr patch weekly bupropion HCl 75 mg tablet PO buprenorphine HCl 8 mg tablet, sublingual SUBLINGUAL cholecalciferol (vitamin D3) 1,250 mcg (50,000 unit) capsule naloxone [Narcan] 4 mg/actuation spray,non-aerosol INTRANASAL carbamazepine 400 mg tablet extended release 12 hr 400 mg PO BID progesterone micronized [Prometrium] 200 mg capsule 200 mg PO QHS 90 Days Qty: 90 3RF clonazepam 1 mg tablet PO TID PRN vitamin B complex [B Complex-Vitamin B12] Tablet 2 tablet PO DAILY cholecalciferol (vitamin D3) 125 mcg (5,000 unit) Tablet 125 mcg PO DAILY gabapentin 300 mg capsule See Rx Instructions .ROUTE .COMPLEX Qty: 450 1RF Dose Instruction: TAKE 1 CAPSULE BY MOUTH IN THE MORNING, 1 IN THE AFTERNOON, 2 AT BEDTIME Rx Instructions: TAKE 1 CAPSULE BY MOUTH IN THE MORNING, 2 IN THE AFTERNOON, 2 AT BEDTIME escitalopram oxalate 20 mg tablet 20 mg PO DAILY Qty: 90 1RF omeprazole 40 mg capsule,delayed release(DR/EC) See Rx Instructions .ROUTE .COMPLEX Qty: 106 0RF Dose Instruction: TAKE 1 CAPSULE BY MOUTH TWICE DAILY FOR 2 WEEKS THEN DECREASE TO ONCE DAILY Rx Instructions: TAKE 1 CAPSULE BY MOUTH TWICE DAILY FOR 2 WEEKS THEN DECREASE TO ONCE DAILY meloxicam 15 mg tablet 15 mg PO DAILY Qty: 30 3RF Follow-up/Referrals: Elliot Ingram MD [Primary Care Provider] -
== END 2025-03-29 18:05 | disposition home or self-care (01) ==
PROVIDERS: Emergency Provider Nurse Practitioner Family; PCP Family Medicine
DX: H60.93 Unspecified otitis externa, bilateral (principal); J01.90 Acute sinusitis, unspecified; F17.210 Nicotine dependence, cigarettes, uncomplicated; I10 Essential (primary) hypertension; E78.5 Hyperlipidemia, unspecified; Z86.73 Personal history of transient ischemic attack (TIA), and cerebral infarction without residual deficits
CPT/HCPCS: 99213; G0463